=== PATIENT | female | born 1950 | race Caucasian/White ===

== ENCOUNTER → 2016-05-21 | Outpatient (CLI) | payer OTHER ==
[~2016-05-21] MED LIST: ASPI81TA28 PO; CHOL100027 PO; ESCI10TA17 PO; TOPI100T34 PO
--- NOTE | 2016-05-21 11:57 | DIAGNOSTIC IMAGING REPORT ---
THYROID ULTRASOUND HISTORY: Evaluate LEFT THYROID NODULE COMPARISON: Chest CTA 06/13/2013. FINDINGS: Right lobe: 5.1 x 1.2 x 1.3 cm. No nodules. Left lobe: 6.0 x 2.3 x 1.6 cm. There is a solid and cystic 3.6 x 2.9 x 2.3 cm nodule within the left lobe. This contains punctate calcifications. Isthmus: 2 mm in thickness. No nodules. IMPRESSION: A solid and cystic 3.6 cm left thyroid nodule. Ultrasound-guided fine-needle aspiration is recommended for further evaluation. Electronically signed by: David Ingram M.D. 05/21/2016 11:56 AM Dictated Date/Time: 05/21/2016 11:54 AM
== END | disposition home or self-care (01) ==
LOC: C.ULTR 10:50
PROVIDERS: ATTEND Family Medicine
DX: E04.1 Nontoxic single thyroid nodule (principal)

== ENCOUNTER → 2016-06-09 | Outpatient (CLI) | payer OTHER ==
--- NOTE | 2016-06-09 11:16 | DIAGNOSTIC IMAGING REPORT ---
Ultrasound-guided thyroid biopsy GUIDANCE NEEDLE PLACEMENT CLINICAL HISTORY: THYROID NODULE thyroid nodule TECHNIQUE: Ultrasound guided left thyroid biopsy COMPARISON STUDY: 05/21/2016 FINDINGS: Following description of the procedure and informed consent, a total of 3 passes to the complex nodule of the left thyroid were performed. Pathology initially indicated a potential indeterminate result. Patient declined additional passes IMPRESSION: Fine-needle aspiration dominant nodule left thyroid Electronically signed by: Cornelio Reinoso M.D. 06/09/2016 11:14 AM Dictated Date/Time: 06/09/2016 11:11 AM
== END | disposition home or self-care (01) ==
LOC: C.ULTR 09:38
PROVIDERS: ATTEND Family Medicine
DX: E04.1 Nontoxic single thyroid nodule (principal)

== ENCOUNTER 2021-01-22 11:39 | Inpatient (IN) ==
--- NOTE | 2021-01-22 14:47 | Emergency Department Note ---
Impression & Plan COVID-19, Bilateral pulmonary embolism ED Provider Note CHIEF COMPLAINT: Right pleuritic chest pain HISTORY OF PRESENT ILLNESS: Carole Dill is a 70 year old female with recent +COVID-19 diagnosis on 01/11/21 who presents to the Emergency Department for evaluation of pleuritic pains to her right lower chest wall and shortness of breath which she developed yesterday. Currently, she rates her discomfort as an 8/10 which worsens with attempts of deep breaths. She has not attempted to take any medications for her symptoms. Since the patient was diagnosed with COVID-19, she states that she has not had an appetite which has made it difficult for her to eat or drink anything. She denies abdominal pain, nausea, vomiting or diarrhea and has continued with +taste/smell, however she states that nothing tastes good so she doesn't want to eat. She subsequently lost a few pounds due to her lack of oral intake, though she states she has been forcing herself to drink breakfast shakes. The patient does note intermittent fevers/chills but she denies nasal congestion or sore throat. She also states that she did not have respiratory symptoms until she began with a mild cough yesterday along with the pains to her right lower chest wall and dyspnea. Due to her development of these symptoms, the patient presents to the ED for further evaluation today. Of note, the patient has history of stroke in her 20s and has been taking a daily bASA, denies use of additional anticoagulants/antiplatelets. REVIEW OF SYSTEMS: 10 systems were reviewed and were negative unless otherwise stated in HPI as above PHYSICAL EXAM: VITALS: Vitals are noted on the nurse's note and reviewed by myself. Vital sig ns stable. General: Resting in bed, no acute distress HEENT: Normocephalic, PERRL, EOMI, bilateral auditory canals with cerumen, mucous membranes moist, oropharynx clear without erythema or edema Neck: No cervical lymphadenopathy Resp: Moderate inspiratory effort on room air but with exacerbation of right lower chest wall pain, breath sounds clear to auscultation without wheezes, rhonchi or rales, no tenderness to palpation of the chest wall CV: Regular rate and rhythm, peripheral pulses palpated Abd: Soft, non-distended, non-tender Integumentary: Scattered pin point scabs consistent with previous urticarial rash over the back Neuro: Awake, alert, interacting and answering questions appropriately Differential diagnosis includes COVID-19, pneumonia, pulmonary effusion, pulmonary embolism, pulmonary infarct, cardiac event, among other etiologies were considered EMERGENCY DEPARTMENT COURSE: Physical exam and history were performed. Nursing notes, EMR, and medication list were personally reviewed. Continuous personnel monitor: Order was placed for continuous personnel monitor. Patient was placed on the personnel monitor. Patient was noted to be in normal sinus rhythm at an initial rate of 99 bpm. Patient appears to have developed worsening respiratory symptoms including a cough with shortness of breath and associated pains to her right lower chest wall since yesterday after she was recently diagnosed with COVID-19 on 01/11/21. IV access was established, and labs were obtained and reviewed by myself as below. Of note, the patient did not have a leukocytosis with a white blood cell count of 9.75, no concern for anemia with hemoglobin 13.2, CMP within relative normal limits without concerning findings. Troponin not elevated at <0.015. Most concerning, however, with an elevated D-dimer of 29,610 indicative of possible blood clot. Chest x-ray was obtained and reviewed by radiologist and myself as below. This did show a few small hazy bilateral airspace opacities within the mid to lower lung zones likely representing a viral pneumonia, however with an elevated D-dimer there is concern for PE. I did discuss this finding with the patient. A CTA of the chest was then obtained and reviewed by radiologist and myself as below. This did show more concerning findings with bilateral pulmonary emboli, dependent subpleural consolidation right greater than left concerning for possible pneumonia versus superimposed pulmonary infarct. The patient was reevaluated and appeared to be in more discomfort after she was moved from CAT scan and had gone to the bathroom. She was offered pain medication and was given a dose of oxycodone 5 mg. I discussed the results of her lab work and imaging with her as above. This was also discussed with my attending, Dr. Whitley. Due to her newly diagnosed pulmonary emboli in the setting of recent Covid diagnosis, we feel that she will benefit from continued management in the hospital. A heparin gtt with bolus was ordered and the [facility] hospitalist group was contacted regarding these concerns. They agreed to evaluate the patient for further management. The patient verbalized understanding and agreement with the treatment plan as above. The chart was completed utilizing Dragon Speech Voice Recognition Software. Grammatical errors, random word insertions, pronoun errors, and incomplete sentences are an occasional consequence of this system due to software limitations, ambient noise, and hardware issues. Any formal questions or concerns about the content, text, or information contained within the body of this dictation should be directly addressed to the provider for clarification. Critical Care I have personally spent 35 minutes of critical care time in the direct manageme nt of this patient. This includes bedside care, interpretation of diagnostic studies, and testing, discussion with consultants, patient, and other required patient management activities. These 35 minutes is in excess of all separately billable procedures. Attending Attestation: I Greg Whitley MD independently saw and evaluated this patient and agree with history and physical is otherwise documented by the physician ophthalmic surgical assistant. See their note for full details. Patient resting in bed not significant hypoxic but has some pleuritic right-sided chest discomfort with deep breathing. Patient has been made aware of the findings of blood clots. Discussed with her the need for anticoagulation and given her age and comorbid Covid with the extensive nature of the PEs feel further observation here would be prudent. The hospitalist team will be contacted. Past Med/Surg History Medical History Anxiety Chronic fatigue Cognitive dysfunction Complex partial seizure Confusion COVID-19 Depression with anxiety Migraine Nausea Stroke Thyroid nodule Surgical History H/O tubal ligation Family History Father Stomach cancer Mother Heart disease Denies family history of Ovarian cancer Prostate cancer Myocardial infarction Breast cancer Colorectal cancer Social History Smoking Status: Never smoker Second Hand Exposure: No; Hx Alcohol Use: No Hx Substance Use: No Preferred Language: Tajik Communication Ability: Effective Visual Impairment: Limited Hearing Ability: Normal Master Glazier Required: No Beliefs That Will Affect Care: None marital status: Current Living Situation: Spouse and Family Current Living Situation Comment: house current occupational status: retired How many Children do You have: 2 Other Information That Helps Us Care for You: No Feels Safe at Home: Yes Safety Concerns: Feels Safe At This Time Childhood Exposure to Second-Hand Smoke: No caffeine: Yes (coffee daily ) during the past year weight has: remained stable Dental Care, Regularly: Yes Physical Activity Frequency: Daily Physical Activity Frequency Comment: walks- housework Seatbelt Use: always Sunscreen Use: Yes Assistive Devices: None Allergies Allergies Allergy/AdvReac Type Severity Reaction Status Date / Time Penicillins Allergy Unknown AMOXICILLIN Verified 01/22/21 15:00 amoxicillin AdvReac Hives Unverified 01/22/21 15:00 Home Meds Home Medications Medication Instructions Recorded Confirmed alendronate 70 mg tablet (Fosamax) 70 mg PO .COMPLEX tab 01/05/19 01/22/21 cholecalciferol (vitamin D3) 500 mg PO DAILY 01/05/19 01/22/21 omega-3 fatty acids-fish oil 360 1 cap PO DAILY 01/05/19 01/22/21 mg-1,200 mg capsule (Fish Oil) [id number] 333 mg-133 333 tab PO DAILY tab 01/09/20 01/22/21 mg-5 mg tablet aspirin 81 mg tablet 81 mg PO DAILY tab 01/07/21 01/11/21 escitalopram oxalate 10 mg tablet 10 mg PO DAILY #30 tab 01/07/21 01/22/21 Previous Rx's Medication Instructions Recorded memantine 10 mg tablet 10 mg PO BID #60 tab 01/07/21 topiramate 100 mg tablet 100 mg PO .COMPLEX #270 tab 01/07/21 ondansetron HCl 4 mg tablet 4 mg PO Q6H PRN #12 tab 01/12/21 (Zofran) Results & Data (ED) Vital Signs Vital Signs - 24 hr 01/22/21 11:52 01/22/21 15:03 01/22/21 17:18 Temperature 37.3 C Temperature Source Temporal Artery Scan Pulse Rate 99 H Pulse Rate [Apical] 90 84 Pulse Rhythm [Apical] Regular Respiratory Rate 18 20 24 Respiratory Effort / Characteristics Non-Labored Spontaneous Non-Labored Respiratory Depth Normal Normal Blood Pressure 130/89 Blood Pressure [Right Arm] 117/88 130/90 Blood Pressure Mean 102 Blood Pressure Mean [Right Arm] 97 103 Blood Pressure Position Sitting Pulse Oximetry 96 94 97 Oxygen Delivery Method Room Air Room Air Room Air Sepsis Recent Fever Within 48 Hours No Sepsis New/Unexplained Change in Mental Status No Sepsis Action Taken by Nursing No Action Required Laboratory Data Result diagrams: 01/23/21 07:29 01/23/21 07:29 Lab Results 01/22/21 01/22/21 01/22/21 Range/Units 14:50 14:50 14:50 WBC 9.75 (4.8-10.8) K/uL RBC 4.28 (4.2-5.4) M/uL Hgb 13.2 (12.0-16.0) g/dL Hct 38.5 (37-47) % MCV 90.0 (80-100) fL MCH 30.8 (25-34) pg MCHC 34.3 (32-36) g/dL RDW Std Deviation 41.3 (36.4-46.3) fL RDW Coeff of Za 12.7 (11.5-14.5) % Plt Count 205 (130-400) K/uL MPV 10.1 (7.4-10.4) fL Immature Gran % (Auto) 0.3 % Neut % (Auto) 74.9 % Lymph % (Auto) 16.5 % [place] % (Auto) 7.9 % Eos % (Auto) 0.3 % Baso % (Auto) 0.1 % Neut # (Auto) 7.30 H (1.4-6.5) K/uL Lymph # (Auto) 1.61 (1.2-3.4) K/uL [place] # (Auto) 0.77 H (0.11-0.59) K/uL Eos # (Auto) 0.03 (0-0.5) K/uL Baso # (Auto) 0.01 (0-0.2) K/uL Immature Gran # (Auto) 0.03 H (0.00-0.02) K/uL PT 10.6 (9.0-12.0) Seconds INR 1.0 (0.9-1.1) APTT 25.5 (21.0-31.0) Seconds PTT Ratio 1.0 D-Dimer Cancelled 64271 H* Sodium (136-145) mmol/L Potassium (3.5-5.1) mmol/L Chloride (98-107) mmol/L Carbon Dioxide (21-32) mmol/L Anion Gap (3-11) BUN (7-18) mg/dl Creatinine (0.6-1.2) mg/dl Est Cr Clr Drug Dosing ml/min Est GFR ( Amer) ml/min Est GFR (Non-Af Amer) ml/min BUN/Creatinine Ratio (10-20) Glucose (70-99) mg/dl Calcium (8.5-10.1) mg/dl Total Bilirubin (0.2-1) mg/dl AST (15-37) U/L ALT (12-78) U/L Alkaline Phosphatase (45-117) U/L Troponin I (0-0.045) ng/ml Total Protein (6.4-8.2) gm/dl Albumin (3.4-5.0) gm/dl Globulin (2.5-4.0) gm/dl Albumin/Globulin Ratio (0.9-2) Urine Color Urine Appearance (Clear) Urine pH (4.5-7.5) Ur Specific [place]gan (1.000-1.030) Urine Protein (Negative) Urine Glucose (UA) (Negative) Urine Ketones (Negative) Urine Blood (Negative) Urine Nitrite (Negative) Urine Bilirubin (Negative) Urine Urobilinogen (Negative) Ur Leukocyte Esterase (Negative) 01/22/21 01/22/21 Range/Units 14:50 17:45 WBC (4.8-10.8) K/uL RBC (4.2-5.4) M/uL Hgb (12.0-16.0) g/dL Hct (37-47) % MCV (80-100) fL MCH (25-34) pg MCHC (32-36) g/dL RDW Std Deviation (36.4-46.3) fL RDW Coeff of Za (11.5-14.5) % Plt Count (130-400) K/uL MPV (7.4-10.4) fL Immature Gran % (Auto) % Neut % (Auto) % Lymph % (Auto) % [place] % (Auto) % Eos % (Auto) % Baso % (Auto) % Neut # (Auto) (1.4-6.5) K/uL Lymph # (Auto) (1.2-3.4) K/uL [place] # (Auto) (0.11-0.59) K/uL Eos # (Auto) (0-0.5) K/uL Baso # (Auto) (0-0.2) K/uL Immature Gran # (Auto) (0.00-0.02) K/uL PT (9.0-12.0) Seconds INR (0.9-1.1) APTT (21.0-31.0) Seconds PTT Ratio D-Dimer Sodium 138 (136-145) mmol/L Potassium 3.5 (3.5-5.1) mmol/L Chloride 109 H (98-107) mmol/L Carbon Dioxide 22 (21-32) mmol/L Anion Gap 7.0 (3-11) BUN 13 (7-18) mg/dl Creatinine 0.85 (0.6-1.2) mg/dl Est Cr Clr Drug Dosing 55.1 ml/min Est GFR ( Amer) 79.9 ml/min Est GFR (Non-Af Amer) 68.9 ml/min BUN/Creatinine Ratio 15.2 (10-20) Glucose 100 H (70-99) mg/dl Calcium 9.5 (8.5-10.1) mg/dl Total Bilirubin 0.9 (0.2-1) mg/dl AST 12 L (15-37) U/L ALT 16 (12-78) U/L Alkaline Phosphatase 77 (45-117) U/L Troponin I < 0.015 (0-0.045) ng/ml Total Protein 8.0 (6.4-8.2) gm/dl Albumin 3.5 (3.4-5.0) gm/dl Globulin 4.5 H (2.5-4.0) gm/dl Albumin/Globulin Ratio 0.8 L (0.9-2) Urine Color Yellow Urine Appearance Clear (Clear) Urine pH 7.0 (4.5-7.5) Ur Specific [place]gan > 1.045 H (1.000-1.030) Urine Protein Negative (Negative) Urine Glucose (UA) Negative (Negative) Urine Ketones Negative (Negative) Urine Blood Negative (Negative) Urine Nitrite Negative (Negative) Urine Bilirubin Negative (Negative) Urine Urobilinogen Negative (Negative) Ur Leukocyte Esterase Negative (Negative) Administered Medications Acetaminophen (Acetaminophen 325 Mg Tab) 650 mg PO Q4H PRN PRN Reason: Pain or Fever Stop: 02/21/21 21:25 Last Admin: 01/23/21 13:11 Dose: 650 mg Documented by: [id number] Admin: 01/23/21 05:50 Dose: 650 mg Documented by: [id number] Escitalopram Oxalate (Escitalopram Oxalate 10 Mg Tab) 10 mg PO DAILY [facility] Stop: 02/22/21 08:59 Last Admin: 01/23/21 07:53 Dose: 10 mg Documented by: [id number] Heparin Sodium/Dextrose (Heparin Sodium/Dextrose) 25,000 units in 500 mls @ 18 mls/hr IV .Q24H [facility]; Protocol Stop: 02/21/21 17:44 Last Admin: 01/23/21 18:36 Dose: 900 units/hr, 18 mls/hr Documented by: [id number] Cosigned by: [id number] Titration: 01/23/21 18:36 Dose: 900 units/hr, 18 mls/hr Documented by: [id number] Cosigned by: [id number] Titration: 01/23/21 01:46 Dose: 900 units/hr, 18 mls/hr Documented by: [id number] Cosigned by: [id number] Titration: 01/23/21 00:42 Dose: 0 units/hr, 0 mls/hr Documented by: [id number] Cosigned by: [id number] Admin: 01/22/21 17:33 Dose: 1,050 units/hr, 21 mls/hr Documented by: [id number] Cosigned by: [id number] Ketorolac Tromethamine (Ketorolac Tromethamine 15 Mg/Ml Vial) 15 mg IV Q6H PRN PRN Reason: Pain Stop: 01/28/21 16:49 Last Admin: 01/23/21 17:29 Dose: 15 mg Documented by: [id number] Lidocaine (Lidocaine 5% 1 Patch) 1 patch TD QAM [facility] Stop: 02/21/21 18:14 Last Admin: 01/23/21 07:54 Dose: Not Given Documented by: [id number] Admin: 01/22/21 19:06 Dose: 1 patch Documented by: [id number] Memantine (Memantine Hcl 10 Mg Tab) 10 mg PO DAILY [facility] Stop: 02/05/21 09:01 Last Admin: 01/23/21 07:53 Dose: 10 mg Documented by: [id number] Miscellaneous (Remove Lidoderm Patch) 1 ea N/A DAILY@2100 [facility] Stop: 02/21/21 21:25 Last Admin: 01/22/21 23:44 Dose: 1 ea Documented by: [id number] Topiramate (Topiramate 100 Mg Tab) 200 mg PO HS [facility] Stop: 02/21/21 21:25 Last Admin: 01/22/21 23:44 Dose: 200 mg Documented by: [id number] Topiramate (Topiramate 100 Mg Tab) 100 mg PO QAM [facility] Stop: 02/22/21 08:59 Last Admin: 01/23/21 07:54 Dose: 100 mg Documented by: [id number] Discontinued Medications Heparin Sodium (Porcine) (Heparin Sod (Porcine) 1000 Unit/Ml) 1 units IV NOW ONE Stop: 01/22/21 17:36 Last Admin: 01/22/21 17:34 Dose: 5,000 units Documented by: [id number] Cosigned by: [id number] Heparin Sodium/Dextrose (Heparin Iv Adult Wt-Based Standard With Bolus Protocol) 1 ea IV NOW STA; Protocol Stop: 01/22/21 17:21 Last Admin: 01/23/21 07:14 Dose: Not Given Documented by: [id number] Heparin Sodium/Dextrose (Heparin Iv Adult Wt-Based Standard With Bolus Protocol) 1 ea IV NOW STA; Protocol Stop: 01/22/21 17:22 Last Admin: 01/23/21 07:20 Dose: Not Given Documented by: [id number] Lactated Ringer's (Lr) 1,000 mls @ 80 mls/hr IV .[id number] [facility] Stop: 02/21/21 18:29 Last Admin: 01/23/21 07:54 Dose: 80 mls/hr Documented by: [id number] Infusion: 01/23/21 07:36 Dose: 80 mls/hr Documented by: [id number] Admin: 01/22/21 19:06 Dose: 80 mls/hr Documented by: [id number] Ioversol (Optiray 320 125ml) 110 ml IV ONCE ONE Stop: 01/22/21 17:03 Last Admin: 01/22/21 17:02 Dose: 110 ml Documented by: [id number] Ketorolac Tromethamine (Ketorolac Tromethamine 15 Mg/Ml Vial) 15 mg IV NOW ONE Stop: 01/22/21 19:02 Last Admin: 01/22/21 23:43 Dose: Not Given Documented by: [id number] Ketorolac Tromethamine (Ketorolac Tromethamine 15 Mg/Ml Vial) 15 mg IV NOW ONE Stop: 01/23/21 01:29 Last Admin: 01/23/21 01:53 Dose: Not Given Documented by: [id number] Oxycodone HCl (Oxycodone Hcl Ir 5 Mg Tab (Immediate Release)) 5 mg PO NOW STA Stop: 01/22/21 17:36 Last Admin: 01/22/21 17:41 Dose: 5 mg Documented by: [id number] Imaging Data Radiologist's Impression: Chest X-Ray 01/22/21 14:42 XR chest 1V portable HISTORY: Covid positive. Shortness of breath. COMPARISON: Chest 01/12/2021. FINDINGS: No pneumothorax. No pleural effusions. There are few small hazy bilateral airspace opacities within the mid to lower lung zones. This most pronounced at the left lung base. This likely represents a mild viral pneumonia. The upper lung zones are clear. The heart is mildly enlarged. No evidence for pulmonary edema. IMPRESSION: A few small hazy bilateral airspace opacities within the mid to lower lung zones likely representing a viral pneumonia. ACT 112: Negative or not required by law. Electronically signed by: David Ingram M.D. 01/22/2021 3:08 PM Chest CTA 01/22/21 15:37 CT ANGIOGRAM OF THE CHEST CLINICAL HISTORY: Dyspnea. Covid. Elevated d-dimer. COMPARISON STUDY: Chest x-ray dated 01/22/2021. Chest CT dated 06/13/2013. TECHNIQUE: Following the IV administration of 110 cc of Optiray 320, CT angiogram of the chest was performed from the upper abdomen to the thoracic inlet utilizing the pulmonary embolus protocol. Images are reviewed in the axial, sagittal, and coronal planes. 3-D MIPS images are created and assessed. IV contrast was administered without complication. A dose lowering technique was utilized adhering to the principles of ALARA. CT DOSE: 305.75 mGycm FINDINGS: Thyroid: A 2.4 cm peripherally calcified nodule in the left lobe has not significantly changed dating back to 2013. This was better assessed on a 08/16/2018 thyroid ultrasound and no specific follow-up is recommended. Thoracic aorta: The thoracic aorta is normal in caliber and demonstrates standard 3-vessel arch anatomy. No dissection is seen. Pulmonary vasculature: There is pulmonary embolus within the distal right main pulmonary artery. This extends into the right middle and lower lobe pulmonary arteries. Segmental and subsegmental pulmonary emboli are seen within the right lower lobe branches. Large segmental and subsegmental pulmonary emboli are also seen within branches of the left lower lobe pulmonary artery. Heart: The heart is normal in size and without pericardial effusion. Lungs and pleural spaces: Subpleural consolidation is present at both lung bases, right greater than left. The upper lobes appear clear. A fat-containing Bochdalek hernia is noted at the left lung base. No pleural effusion is identified. The trachea and central airways are clear. Mediastinum: There is no mediastinal lymphadenopathy. Tati: Clear. Axillae: There is no axillary lymphadenopathy. Upper abdomen: Partially visualized upper abdominal viscera is within normal limits. Skeletal structures: The skeletal structures are osteopenic. Mild degenerative changes noted in the thoracic spine. No lytic or blastic bony lesions are seen. IMPRESSION: 1. Bilateral pulmonary embolus as above. 2. Dependent subpleural consolidation is seen at both lung bases, right greater than left. This could represent pneumonia and/or superimposed pulmonary infarct. Clinical correlation will be essential. 3. Additional findings as above. ACT 112: Negative or not required by law. Electronically signed by: Artemio Stratton M.D. 01/22/2021 5:12 PM Discharge Plan Visit Data Chief Complaint: Flank Pain Stated Complaint: R SIDE PAIN,HURTS WHEN BREATHING ED Provider: Greg Whitley ED Midlevel Provider: Vero Castro Discharge Problem: COVID-19, Bilateral pulmonary embolism Patient Disposition: Admitted As Inpatient Discharge Instructions Interventions: ED Discharge Assessment Last Done: 01/22/21 21:18
[2021-01-22 15:04] LABS: Basophils # (auto) 0.01 K/uL (0-0.2); Basophils % (auto) 0.1 %; Eosinophils # (auto) 0.03 K/uL (0-0.5); Eosinophils % (auto) 0.3 %; Hematocrit (blood only) 38.5 % (37-47); Hemoglobin 13.2 g/dL (12.0-16.0); Immature Granulocytes # (auto) 0.03 K/uL (0.00-0.02); Immature Granulocytes % (auto) 0.3 %; Lymphocytes # (auto) 1.61 K/uL (1.2-3.4); Lymphocytes % (auto) 16.5 %; Mean Corpuscular Hemoglobin 30.8 pg (25-34); Mean Corpuscular Hgb Conc 34.3 g/dL (32-36); Mean Platelet Volume 10.1 fL (7.4-10.4); Monocytes # (auto) 0.77 K/uL (0.11-0.59); Monocytes % (auto) 7.9 %; Neutrophils % (auto) 74.9 %; Platelet Count 205 K/uL (130-400); RDW Coefficient of Variation 12.7 % (11.5-14.5); RDW Standard Deviation 41.3 fL (36.4-46.3); Red Blood Count 4.28 M/uL (4.2-5.4); White Blood Count 9.75 K/uL (4.8-10.8)
--- NOTE | 2021-01-22 15:09 | XRay Report ---
XR chest 1V portable HISTORY: Covid positive. Shortness of breath. COMPARISON: Chest 01/12/2021. FINDINGS: No pneumothorax. No pleural effusions. There are few small hazy bilateral airspace opacitie s within the mid to lower lung zones. This most pronounced at the left lung base. This likely represe nts a mild viral pneumonia. The upper lung zones are clear. The heart is mildly enlarged. No evidence for pulmonary edema. IMPRESSION: A few small hazy bilateral airspace opacities within the mid to lower lung zones likely representing a viral pneumonia. ACT 112: Negative or not required by law. Electronically signed by: David Ingram M.D. 01/22/2021 3:08 PM
[2021-01-22 15:24] LABS: Alanine Aminotransferase 16 U/L (12-78); Albumin Level 3.5 gm/dl (3.4-5.0); Aspartate Aminotransferase 12 U/L (15-37); BUN Creatinine Ratio 15.2 (10-20); Blood Urea Nitrogen 13 mg/dl (7-18); Calcium 9.5 mg/dl (8.5-10.1); Carbon Dioxide 22 mmol/L (21-32); Chloride 109 mmol/L (98-107); Creatinine Clr Calc Pharmacy 55.1 ml/min; Est GFR (African American) 79.9 ml/min; Est GFR (Non-African American) 68.9 ml/min; Glucose 100 mg/dl (70-99); Potassium 3.5 mmol/L (3.5-5.1); Sodium 138 mmol/L (136-145)
[2021-01-22 15:29] LABS: Albumin Globulin Ratio 0.8 (0.9-2); Alkaline Phosphatase 77 U/L (45-117); Bilirubin,Total 0.9 mg/dl (0.2-1); Globulin 4.5 gm/dl (2.5-4.0); Troponin I < 0.015 ng/ml (0-0.045)
[2021-01-22 15:31] LABS: Partial Thromboplastin Time 25.5 Seconds (21.0-31.0); Prothrombin Time 10.6 Seconds (9.0-12.0)
[2021-01-22 15:35] LABS: D Dimer 29610 ug/L FEU (0-500)
[2021-01-22] MEDS ORDERED: OPTIRAY 320 125ml IV ONE (17:02)
--- NOTE | 2021-01-22 17:13 | CT Scan Report ---
CT ANGIOGRAM OF THE CHEST CLINICAL HISTORY: Dyspnea. Covid. Elevated d-dimer. COMPARISON STUDY: Chest x-ray dated 01/22/2021. Chest CT dated 06/13/2013. TECHNIQUE: Following the IV administration of 110 cc of Optiray 320, CT angiogram of the chest was pe rformed from the upper abdomen to the thoracic inlet utilizing the pulmonary embolus protocol. Images are reviewed in the axial, sagittal, and coronal planes. 3-D MIPS images are created and assessed. I V contrast was administered without complication. A dose lowering technique was utilized adhering to the principles of ALARA. CT DOSE: 305.75 mGycm FINDINGS: Thyroid: A 2.4 cm peripherally calcified nodule in the left lobe has not significantly changed dating back to 2013. This was better assessed on a 08/16/2018 thyroid ultrasound and no specific follow-up i s recommended. Thoracic aorta: The thoracic aorta is normal in caliber and demonstrates standard 3-vessel arch anato my. No dissection is seen. Pulmonary vasculature: There is pulmonary embolus within the distal right main pulmonary artery. This extends into the right middle and lower lobe pulmonary arteries. Segmental and subsegmental pulmonar y emboli are seen within the right lower lobe branches. Large segmental and subsegmental pulmonary em boli are also seen within branches of the left lower lobe pulmonary artery. Heart: The heart is normal in size and without pericardial effusion. Lungs and pleural spaces: Subpleural consolidation is present at both lung bases, right greater than left. The upper lobes appear clear. A fat-containing Bochdalek hernia is noted at the left lung base. No pleural effusion is identified. The trachea and central airways are clear. Mediastinum: There is no mediastinal lymphadenopathy. Tati: Clear. Axillae: There is no axillary lymphadenopathy. Upper abdomen: Partially visualized upper abdominal viscera is within normal limits. Skeletal structures: The skeletal structures are osteopenic. Mild degenerative changes noted in the t horacic spine. No lytic or blastic bony lesions are seen. IMPRESSION: 1. Bilateral pulmonary embolus as above. 2. Dependent subpleural consolidation is seen at both lung bases, right greater than left. This could represent pneumonia and/or superimposed pulmonary infarct. Clinical correlation will be essential. 3. Additional findings as above. ACT 112: Negative or not required by law. Electronically signed by: Artemio Stratton M.D. 01/22/2021 5:12 PM
[2021-01-22] MEDS ORDERED: Heparin IV Adult Wt-Based Standard WITH Bolus Protocol IV STA ×2 (17:20→17:21)
[2021-01-22] MEDS: HEPARIN SODIUM/DEXTROSE 25,000 UNITS/500 ML BAG IV SCH (17:33)
[2021-01-22] MEDS ORDERED: HEPARIN SOD (PORCINE) 1000 UNIT/ML IV ONE ×2 (17:35→17:36)
[2021-01-22] MEDS ORDERED: oxyCODONE HCL IR 5 MG TAB (IMMEDIATE RELEASE) PO STA (17:35)
[2021-01-22] MEDS ORDERED: HEPARIN SODIUM/DEXTROSE 25,000 UNITS/500 ML BAG IV SCH (17:45)
[2021-01-22 17:54] LABS: Appearance Urine Clear (Clear); Bilirubin Urine Negative (Negative); Blood Urine Negative (Negative); Color Urine Yellow; Glucose Urine UA Negative (Negative); Ketones Urine Negative (Negative); Leukocyte Esterase Urine Negative (Negative); Nitrite Urine Negative (Negative); Protein Urine Negative (Negative); Specific Gravity Urine > 1.045 (1.000-1.030); Urobilinogen Urine Negative (Negative)
--- NOTE | 2021-01-22 18:52 | History & Physical Report ---
Date of Service January 22, 2021 Assessment & Plan (1) Pulmonary embolism: Plan: Acute bilateral pulmonary embolism with right sided pulmonary infarction - in the setting of COVID 19 - Patient hemodynamically stable, no evidence of shock, Troponin I negative, BNP - PESI II, modified PESI 0, - Shock index 0.6 - Patient started on Heparin drip with bolus- continue through PM with transition to oral agent - Risk factors- COVID, decrease mobility - No RV dilation on CT scan - Normal WBC and NLR and platelet count For her Pulmonary infarct pain- Lidoderm patches q12, Toradol x1- if effective can re-dose for later, and Tylenol. ICS and if severe consider oral narcotic. (2) COVID-19: Plan: COVID 19 without hypoxia or respiratory failure - Patient is Day 11 from test and day 15 from illness onset - Continue supportive care - CT scan of the lungs except for pulmonary infarct without severe disease or scarring noted - Inflammatory labs sent (3) Hypovolemia: Plan: Spec grav 1.045 LR overnight 80ml per hour to meet daily fluid intake can wean off if she feels better (4) Cognitive dysfunction: Plan: Follows with neurology- with decrease in her memory - Continue Memantine 10mg PO BID (5) Chronic fatigue: Plan: Had some improvment with memantine as above (6) Migraine: Plan: On Topiramate- controlled (7) Complex partial seizure: Plan: On Topiramate- Initial seizure was in June 2018- patient has not had any since that she can recall (8) Depression with anxiety: Plan: Continue with escitalopram 10mg PO daily (9) Weight loss: Plan: In the setting of loss of appetite associated with COVID 19 - patient still has her sense of taste and smell - reports 10-12 lb weight loss- patient appears frail - regular diet and supplement with nutritional shakes BID- adjust as warranted History of Present Illness Chief Complaint: chest pain Primary Care Provider: Michael Mars MD 70 YOF with past medical history of: COVID 19 (01/11/21 test +, symptoms 01/07/21), cognitive dysfunction, Complex partial seizure, migraine, anxiety, osteopenia. Patient comes to the emergency room today for acute onset of right lower chest pain on the anterior lateral intercostals 5-6. This started last night around 2330 and was sharp and stabbing in nature that continued to get progressively worse today. This was also associated with dyspnea as well that got progressively worse today. The patient has not been admitted for her COVID and has been managing at home, with just a decrease in appetite for the past week and has noticed 10-12 lb weight loss. She states that no food tastes good to her, but she has been trying to stay hydrated, but even that has been a struggle today. In the EMD the patient had routine labs drawn and ECG. Due to her pain location a [place] [address], which prompted CTA of the chest. CTA of the chest revealed bilateral PEs- right distal main PA extending to the right middle and lower lobe with pulmonary infraction as well as segmental and subsegmental PE on the left. The patient was not hypoxic had no tachycardia or evidence of hemodynamic instability. Her troponin I was negative, no pericardial effusion and no note of heart strain on ECG or physical exam. Patient was started on Heparin drip with bolus in the EMD and the hospitalist was called for admission. Patient is fatigued appearing and has been sleeping in her recliner at home. She has not noticed any leg pain or discomfort and no leg pain or swollen calves on examination. Patient will be admitted for supportive care of her nutrition and hydration status and transition to DOAC for her PE in the setting of COVID. For her pain that is likely resulting from pulmonary infarct will transition to Lidoderm patch and Toradol dose now and Tylenol. This should improve over the next day. Patient PESI score is II with Modified PESI of 0. Patient is unvaccinated. COVID test positive on . Allergies Allergy/AdvReac Type Severity Reaction Status Date / Time Penicillins Allergy Unknown AMOXICILLIN Verified 01/22/21 15:00 amoxicillin AdvReac Hives Unverified 01/22/21 15:00 Home Medications Medication Instructions Recorded Confirmed Type alendronate 70 mg tablet (Fosamax) 70 mg PO .COMPLEX tab 01/05/19 01/22/21 History cholecalciferol (vitamin D3) 500 mg PO DAILY 01/05/19 01/22/21 History omega-3 fatty acids-fish oil 360 1 cap PO DAILY 01/05/19 01/22/21 History mg-1,200 mg capsule (Fish Oil) [id number]-[id number]-[id number] 333 mg-133 333 tab PO DAILY tab 01/09/20 01/22/21 History mg-5 mg tablet aspirin 81 mg tablet 81 mg PO DAILY tab 01/07/21 01/11/21 History escitalopram oxalate 10 mg tablet 10 mg PO DAILY #30 tab 01/07/21 01/22/21 History memantine 10 mg tablet 10 mg PO BID #60 tab 01/07/21 01/22/21 Rx topiramate 100 mg tablet 100 mg PO .COMPLEX #270 tab 01/07/21 01/22/21 Rx ondansetron HCl 4 mg tablet 4 mg PO Q6H PRN #12 tab 01/12/21 01/22/21 Rx (Zofran) Past Med/Surg History Medical History Anxiety Chronic fatigue Cognitive dysfunction Complex partial seizure Confusion COVID-19 Depression with anxiety Migraine Nausea Stroke Thyroid nodule Surgical History H/O tubal ligation Family History Father Stomach cancer Mother Heart disease Denies family history of Ovarian cancer Prostate cancer Myocardial infarction Breast cancer Colorectal cancer Social History Smoking Status: Never smoker Second Hand Exposure: No; Hx Alcohol Use: No Hx Substance Use: No Preferred Language: Korean Visual Impairment: Limited Hearing Ability: Normal 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 Beliefs That Will Affect Care: None marital status: Current Living Situation: Spouse and Family Current Living Situation Comment: house current occupational status: retired How many Children do You have: 2 Other Information That Helps Us Care for You: No Feels Safe at Home: Yes Safety Concerns: Feels Safe At This Time Childhood Exposure to Second-Hand Smoke: No caffeine: Yes (coffee daily ) during the past year weight has: remained stable Dental Care, Regularly: Yes Physical Activity Frequency: Daily Physical Activity Frequency Comment: walks- housework Seatbelt Use: always Sunscreen Use: Yes Assistive Devices: Glasses Review of Systems Review of Systems: REVIEW OF SYSTEMS: Constitutional: No fever, sweats or chills Eyes: No diplopia, no worsening or blurred vision ENT: normal hearing, no trouble swallowing Respiratory: (+) cough, pleuritic chest pain, NO dyspnea at rest or on exertion, No sputum Cardiovascular: No chest pain, tightness or palpitations Abdomen: (+) loss of appetite, No pain, nausea, vomiting, diarrhea or constipation Musculoskeletal: No joint pain, calf pain, swelling Neurologic: No focal weakness, numbness/tingling, or balance problems Psychiatric: (+) depression Skin: No rash or itch Physical Exam Physical Exam: PHYSICAL EXAM: General: awake, alert, no apparent distress Head: Normocephalic, atraumatic ENT: PERRL, EOMI, no pharyngeal exudate, mucous membranes moist Neuro: AAO x 3, speech clear and appropriate, strength intact bilaterally 5/5, sensation intact and equal all extremities and dermatomes, no pronator drift Chest: equal rise and fall of the chest, no accessory muscle use, no heaves or thrills, Clear to auscultation, on room air, Cardiac: Regular rate and rhythm, telemetry reviewed, skin warm dry, cap refill <3 seconds, peripheral pulses +2 no JVD, no murmur, no edema GI: NABS x 4 quadrants, soft, nontender to palpation, no rebound, guarding or tenderness : Spontaneously voiding, no pain, no CVA tenderness, Extremities: Normal inspection, no peripheral edema or erythema, calfs nontender to palpation Psych: Normal mood and affect Skin: no rash or erythema Results & Data Results & Data ([facility]) Vital Signs (Past 12 Hours) Vital Signs Temp Pulse Pulse Resp BP BP Pulse Ox 01/22/21 17:18 84 24 130/90 97 01/22/21 15:03 90 20 117/88 94 01/22/21 11:52 37.3 C 99 H 18 130/89 96 Laboratory Results Abnormal lab results 01/22/21 01/22/21 01/22/21 Range/Units 14:50 14:50 14:50 Neut # (Auto) 7.30 H (1.4-6.5) K/uL [place] # (Auto) 0.77 H (0.11-0.59) K/uL Immature Gran # (Auto) 0.03 H (0.00-0.02) K/uL D-Dimer 73015 H* (0-500) ug/L FEU Chloride 109 H (98-107) mmol/L Glucose 100 H (70-99) mg/dl AST 12 L (15-37) U/L Globulin 4.5 H (2.5-4.0) gm/dl Albumin/Globulin Ratio 0.8 L (0.9-2) Ur Specific [place] (1.000-1.030) 01/22/21 Range/Units 17:45 Neut # (Auto) (1.4-6.5) K/uL [place] # (Auto) (0.11-0.59) K/uL Immature Gran # (Auto) (0.00-0.02) K/uL D-Dimer (0-500) ug/L FEU Chloride (98-107) mmol/L Glucose (70-99) mg/dl AST (15-37) U/L Globulin (2.5-4.0) gm/dl Albumin/Globulin Ratio (0.9-2) Ur Specific [place] > 1.045 H (1.000-1.030) Diagnostic Findings Chest X-Ray 01/22/21 14:42 XR chest 1V portable HISTORY: Covid positive. Shortness of breath. COMPARISON: Chest 01/12/2021. FINDINGS: No pneumothorax. No pleural effusions. There are few small hazy bilateral airspace opacities within the mid to lower lung zones. This most pronounced at the left lung base. This likely represents a mild viral pneumonia. The upper lung zones are clear. The heart is mildly enlarged. No evidence for pulmonary edema. IMPRESSION: A few small hazy bilateral airspace opacities within the mid to lower lung zones likely representing a viral pneumonia. ACT 112: Negative or not required by law. Electronically signed by: David Ingram M.D. 01/22/2021 3:08 PM Chest CTA 01/22/21 15:37 CT ANGIOGRAM OF THE CHEST CLINICAL HISTORY: Dyspnea. Covid. Elevated d-dimer. COMPARISON STUDY: Chest x-ray dated 01/22/2021. Chest CT dated 06/13/2013. TECHNIQUE: Following the IV administration of 110 cc of Optiray 320, CT angiogram of the chest was performed from the upper abdomen to the thoracic inlet utilizing the pulmonary embolus protocol. Images are reviewed in the axial, sagittal, and coronal planes. 3-D MIPS images are created and assessed. IV contrast was administered without complication. A dose lowering technique was utilized adhering to the principles of ALARA. CT DOSE: 305.75 mGycm FINDINGS: Thyroid: A 2.4 cm peripherally calcified nodule in the left lobe has not si gnificantly changed dating back to 2013. This was better assessed on a 08/16/2018 thyroid ultrasound and no specific follow-up is recommended. Thoracic aorta: The thoracic aorta is normal in caliber and demonstrates standard 3-vessel arch anatomy. No dissection is seen. Pulmonary vasculature: There is pulmonary embolus within the distal right main pulmonary artery. This extends into the right middle and lower lobe pulmonary arteries. Segmental and subsegmental pulmonary emboli are seen within the right lower lobe branches. Large segmental and subsegmental pulmonary emboli are also seen within branches of the left lower lobe pulmonary artery. Heart: The heart is normal in size and without pericardial effusion. Lungs and pleural spaces: Subpleural consolidation is present at both lung bases, right greater than left. The upper lobes appear clear. A fat-containing Bochdalek hernia is noted at the left lung base. No pleural effusion is identified. The trachea and central airways are clear. Mediastinum: There is no mediastinal lymphadenopathy. Tati: Clear. Axillae: There is no axillary lymphadenopathy. Upper abdomen: Partially visualized upper abdominal viscera is within normal limits. Skeletal structures: The skeletal structures are osteopenic. Mild degenerative changes noted in the thoracic spine. No lytic or blastic bony lesions are seen. IMPRESSION: 1. Bilateral pulmonary embolus as above. 2. Dependent subpleural consolidation is seen at both lung bases, right greater than left. This could represent pneumonia and/or superimposed pulmonary infarct. Clinical correlation will be essential. 3. Additional findings as above. ACT 112: Negative or not required by law. Electronically signed by: Artemio Stratton M.D. 01/22/2021 5:12 PM Medications Administered Home Medications alendronate 70 mg tablet (Fosamax) 70 mg PO .COMPLEX tab 01/05/19 [History Confirmed 01/22/21] cholecalciferol (vitamin D3) 500 mg PO DAILY 01/05/19 [History Confirmed 01/22/21] omega-3 fatty acids-fish oil 360 mg-1,200 mg capsule (Fish Oil) 1 cap PO DAILY 01/05/19 [History Confirmed 01/22/21] syspkra-ukrgccjni-ybqv 333 mg-133 mg-5 mg tablet 333 tab PO DAILY tab 01/09/20 [History Confirmed 01/22/21] aspirin 81 mg tablet 81 mg PO DAILY tab 01/07/21 [History Confirmed 01/11/21] escitalopram oxalate 10 mg tablet 10 mg PO DAILY #30 tab 01/07/21 [History Confirmed 01/22/21] memantine 10 mg tablet 10 mg PO BID #60 tab 01/07/21 [Rx Confirmed 01/22/21] topiramate 100 mg tablet 100 mg PO .COMPLEX #270 tab 01/07/21 [Rx Confirmed 01/22/21] ondansetron HCl 4 mg tablet (Zofran) 4 mg PO Q6H PRN #12 tab 01/12/21 [Rx Confirmed 01/22/21] Active Medications Heparin Sodium/Dextrose (Heparin Sodium/Dextrose) 25,000 units in 500 mls @ 0.02 mls/hr IV .Q24H FERNANDA; Protocol Stop: 02/21/21 17:44 Last Admin: 01/22/21 17:33 Dose: 1,050 units/hr, 21 mls/hr Documented by: Lactated Ringer's (Lr) 1,000 mls @ 80 mls/hr IV .[id number] FERNANDA Stop: 02/21/21 18:29 Lidocaine (Lidocaine 5% 1 Patch) 1 patch TD QAM FERNANDA Stop: 02/21/21 18:14 Heparin Sodium/Dextrose (Heparin Sodium/Dextrose) 25,000 units in 500 mls @ 0.02 mls/hr IV .Q24H FERNANDA; Protocol Stop: 02/21/21 17:44 Last Admin: 01/22/21 17:33 Dose: 1,050 units/hr, 21 mls/hr Documented by: [id number] Cosigned by: [id number] Discontinued Medications Heparin Sodium (Porcine) (Heparin Sod (Porcine) 1000 Unit/Ml) 1 units IV NOW ONE Stop: 01/22/21 17:36 Last Admin: 01/22/21 17:34 Dose: 5,000 units Documented by: [id number] Cosigned by: [id number] Ioversol (Optiray 320 125ml) 110 ml IV ONCE ONE Stop: 01/22/21 17:03 Last Admin: 01/22/21 17:02 Dose: 110 ml Documented by: [id number] Oxycodone HCl (Oxycodone Hcl Ir 5 Mg Tab (Immediate Release)) 5 mg PO NOW STA Stop: 01/22/21 17:36 Last Admin: 01/22/21 17:41 Dose: 5 mg Documented by: [id number] ECG Additional Comments: Normal sinus rhythm Cannot rule out Anteroseptal infarct , age undetermined Abnormal ECG When compared with ECG of 13-JUN-2013 12:51, Minimal criteria for Anteroseptal infarct are now Present Code Status & VTE Plan Code Status CODE: FULL VTE: SCDs, Heparin drip VTE Prophylaxis Plan VTE Prophylaxis will be ordered: Yes Supervising Physician Co-Signing Physician Notes During face to face encounter with patient, obtained a history and physical examination. Discussed case with LEIGH Vaca and answered all of the patient's questions. I reviewed above note and agree with it. Patient will be admitted with a pulmonary embolism. Michael be placed on IV heparin and once pain is controlled with lidocaine patch, patient will be discharged likely on a DOAC. PG Care Time/CCT Total # of Minutes Spent Total Time Spent with Patient: Total time spent is greater than 50% in coordination of care (as documented) at patient's floor/unit and/or counseling patient: Coding Level of Care Code 66291 Initial Inpt Care Lvl 3 Diagnoses COVID-19 U07.1 Pulmonary embolism I26.99 Cognitive dysfunction F09 Chronic fatigue R53.82 Migraine G43.909 Complex partial seizure G40.209 Depression with anxiety F41.8 Hypovolemia E86.1 Weight loss R63.4
[2021-01-22] MEDS ORDERED: KETOROLAC TROMETHAMINE 15 MG/ML VIAL IV ONE (19:01)
[2021-01-22] MEDS: LACTATED RINGER'S 1,000 ML IV SCH (19:06)
[2021-01-22] MEDS: LIDOCAINE 5% 1 PATCH TD SCH (19:06)
[2021-01-22 19:26] LABS: Fibrinogen 421 mg/dl (184-400)
[2021-01-22 19:41] LABS: C Reactive Protein 2.9 mg/dl (0-0.29); Ferritin 219.9 ng/ml (8-388)
[2021-01-22] MEDS ORDERED: ONDANSETRON INJ 2 MG/ML 2 ML VIAL IV PRN (21:26)
[2021-01-22] MEDS ORDERED: ONDANSETRON 4 MG OD TAB PO PRN (21:42)
[2021-01-22] MEDS: TOPIRAMATE 100 MG TAB PO SCH (23:44)
[2021-01-23 00:36] LABS: Partial Thromboplastin Ratio 3.9
[2021-01-23 00:41] LABS: Partial Thromboplastin Time 102.6 Seconds (21.0-31.0)
[2021-01-23] MEDS ORDERED: KETOROLAC TROMETHAMINE 15 MG/ML VIAL IV ONE (01:28)
[2021-01-23] MEDS: ACETAMINOPHEN 325 MG TAB PO PRN ×2 (05:50→13:11)
[2021-01-23 07:38] LABS: Basophils # (auto) 0.01 K/uL (0-0.2); Basophils % (auto) 0.1 %; Eosinophils # (auto) 0.02 K/uL (0-0.5); Eosinophils % (auto) 0.3 %; Hematocrit (blood only) 31.2 % (37-47); Immature Granulocytes # (auto) 0.01 K/uL (0.00-0.02); Immature Granulocytes % (auto) 0.1 %; Lymphocytes # (auto) 1.05 K/uL (1.2-3.4); Lymphocytes % (auto) 13.8 %; Mean Corpuscular Hgb Conc 35.3 g/dL (32-36); Mean Corpuscular Volume 87.9 fL (80-100); Mean Platelet Volume 9.5 fL (7.4-10.4); Monocytes # (auto) 0.79 K/uL (0.11-0.59); Monocytes % (auto) 10.4 %; Neutrophils # (auto) 5.75 K/uL (1.4-6.5); Neutrophils % (auto) 75.3 %; Platelet Count 218 K/uL (130-400); RDW Coefficient of Variation 12.5 % (11.5-14.5); RDW Standard Deviation 40.7 fL (36.4-46.3); Red Blood Count 3.55 M/uL (4.2-5.4); White Blood Count 7.63 K/uL (4.8-10.8)
[2021-01-23] MEDS: ESCITALOPRAM OXALATE 10 MG TAB PO SCH (07:53)
[2021-01-23] MEDS: MEMANTINE HCL 10 MG TAB PO SCH (07:53)
[2021-01-23] MEDS: TOPIRAMATE 100 MG TAB PO SCH ×2 (07:54→21:12)
[2021-01-23] MEDS: LIDOCAINE 5% 1 PATCH TD SCH (07:54)
[2021-01-23] MEDS: LACTATED RINGER'S 1,000 ML IV SCH (07:54)
[2021-01-23 07:57] LABS: Partial Thromboplastin Ratio 2.1
[2021-01-23 07:59] LABS: Partial Thromboplastin Time 54.6 Seconds (21.0-31.0)
[2021-01-23 08:22] LABS: BUN Creatinine Ratio 12.7 (10-20); Calcium 8.4 mg/dl (8.5-10.1); Creatinine Clr Calc Pharmacy 61.7 ml/min; Est GFR (African American) 91.5 ml/min; Est GFR (Non-African American) 78.9 ml/min; Magnesium 2.2 mg/dl (1.8-2.4); Potassium 4.2 mmol/L (3.5-5.1)
--- NOTE | 2021-01-23 16:49 | Hospitalist Progress Note ---
Date of Service January 23, 2021 Assessment & Plan (1) Pulmonary embolism: Plan: Acute bilateral pulmonary embolism with right sided pulmonary infarction - in the setting of COVID 19 - Patient hemodynamically stable, no evidence of shock, Troponin I negative, BNP - PESI II, modified PESI 0, - Shock index 0.6 -Continue Heparin drip for now, case management working on seeing if she can get financial assistance for DOAC. Can give first 30 days for free but not sure if she will be able to continue on it after that. Patient will also look into getting new insurance plan for April that would have better coverage of DOAC medications. Other option would be Lovenox bridge to Coumadin Will know more information tomorrow-continue heparin drip for now - Risk factors- COVID, decrease mobility - No RV dilation on CT scan - Normal WBC and NLR and platelet count For her Pulmonary infarct pain- Lidoderm patches q12,, Tylenol, and will add as needed IV Toradol back as this helped. ICS and if severe consider oral narcotic. (2) COVID-19: Plan: COVID 19 without hypoxia or respiratory failure - Patient is Day 11 from test and day 15 from illness onset at the time of admission -Is on Covid precautions but other than PE, has no other symptoms except poor appetite - Continue supportive care - CT scan of the lungs except for pulmonary infarct without severe disease or scarring noted Markers of inflammation are low (3) Hypovolemia: Plan: Spec grav 1.045 LR overnight 80ml per hour to meet daily fluid intake Doing better DC IV fluids (4) Cognitive dysfunction: Plan: Follows with neurology- with decrease in her memory - Continue Memantine 10mg-unsure if to be on 10 mg daily or twice daily at this point We will do daily for now (5) Chronic fatigue: (6) Migraine: Plan: On Topiramate- controlled (7) Complex partial seizure: Plan: On Topiramate- Initial seizure was in June 2018- patient has not had any since that she can recall (8) Depression with anxiety: Plan: Continue with escitalopram 10mg PO daily (9) Weight loss: Plan: In the setting of loss of appetite associated with COVID 19 - patient still has her sense of taste and smell - reports 10-12 lb weight loss- patient appears frail - regular diet and supplement with nutritional shakes BID- adjust as warranted Plan: Disposition-continued stay, but hopeful for discharge home tomorrow if pain controlled, and anticoagulation can be worked out Admission and Anticipated Discharge Date Admission Date: January 22, 2021 Subjective Patient still having pain on the right side of her chest wall with deep breathing that is partially relieved by Tylenol. Otherwise does not feel short of breath. No bleeding from anywhere. Discussed choices of anticoagulation and she would like to do a DOAC if possible however her insurance does not cover Xarelto or Eliquis. Case management asked to look into financial assistance for her for this. Telemetry with normal sinus rhythm with rates in the 80s. Review of Systems Review of Systems: All systems reviewed & are unremarkable except as noted in HPI & below Physical Exam Constitutional: WD/WN, vitals as above Eyes: PERRL, conjunctivae normal, anicteric sclerae ENMT: external ear and nose normal, oropharynx normal Neck: trachea midline, no thyromegaly Respiratory: normal respiratory effort, lungs clear to auscultation (Except slightly diminished at right base) Cardiovascular: RRR, no murmur, no edema Chest (Breasts): Chest: normal inspection of chest Gastrointestinal (Abdomen): normal bowel sounds, soft, nontender, no hepatosplenomegaly Musculoskeletal: Extremities: extremities normal to inspection; no cyanosis and no clubbing Skin: no rashes, warm and dry Neurologic: moves all extremities and awake; no focal motor deficits Psychiatric: A+Ox3, euthymic affect Lymphatic: no lymphedema Results & Data Results & Data ([facility]) Vital Signs (Past 12 Hours) Vital Signs Temp Pulse Resp BP Pulse Ox 01/23/21 15:15 37.0 C 79 20 93/60 L 93 01/23/21 07:57 36.8 C 80 18 98/63 L 93 01/23/21 05:39 36.9 C 95 H 18 123/80 91 PG Care Time/CCT Total # of Minutes Spent Total Time Spent with Patient: Total time spent is greater than 50% in coordination of care (as documented) at patient's floor/unit and/or counseling patient: Coding Level of Care Code 80669 Subseq Hosp Care Lvl 3 Diagnoses Pulmonary embolism I26.99 COVID-19 U07.1 Hypovolemia E86.1 Cognitive dysfunction F09 Chronic fatigue R53.82 Migraine G43.909 Complex partial seizure G40.209 Depression with anxiety F41.8 Weight loss R63.4
[2021-01-23] MEDS: KETOROLAC TROMETHAMINE 15 MG/ML VIAL IV PRN (17:29)
[2021-01-23] MEDS: HEPARIN SODIUM/DEXTROSE 25,000 UNITS/500 ML BAG IV SCH (18:36)
[2021-01-24 06:59] LABS: Basophils # (auto) 0.01 K/uL (0-0.2); Basophils % (auto) 0.1 %; Eosinophils # (auto) 0.04 K/uL (0-0.5); Eosinophils % (auto) 0.5 %; Hematocrit (blood only) 32.5 % (37-47); Hemoglobin 11.2 g/dL (12.0-16.0); Immature Granulocytes # (auto) 0.01 K/uL (0.00-0.02); Immature Granulocytes % (auto) 0.1 %; Lymphocytes % (auto) 14.6 %; Mean Corpuscular Hemoglobin 30.1 pg (25-34); Mean Corpuscular Hgb Conc 34.5 g/dL (32-36); Mean Corpuscular Volume 87.4 fL (80-100); Mean Platelet Volume 9.7 fL (7.4-10.4); Monocytes # (auto) 0.69 K/uL (0.11-0.59); Monocytes % (auto) 9.2 %; Neutrophils # (auto) 5.69 K/uL (1.4-6.5); Neutrophils % (auto) 75.5 %; Platelet Count 233 K/uL (130-400); RDW Coefficient of Variation 12.6 % (11.5-14.5); RDW Standard Deviation 40.6 fL (36.4-46.3); Red Blood Count 3.72 M/uL (4.2-5.4); White Blood Count 7.54 K/uL (4.8-10.8)
[2021-01-24 07:17] LABS: BUN Creatinine Ratio 15.8 (10-20); Calcium 8.6 mg/dl (8.5-10.1); Creatinine Clr Calc Pharmacy 56.2 ml/min; Est GFR (African American) 79.9 ml/min; Est GFR (Non-African American) 68.9 ml/min; Potassium 4.4 mmol/L (3.5-5.1)
[2021-01-24 07:38] LABS: Partial Thromboplastin Time 53.2 Seconds (21.0-31.0)
[2021-01-24] MEDS: MEMANTINE HCL 10 MG TAB PO SCH (08:39)
[2021-01-24] MEDS: TOPIRAMATE 100 MG TAB PO SCH ×2 (08:39→20:41)
[2021-01-24] MEDS: LIDOCAINE 5% 1 PATCH TD SCH (08:39)
[2021-01-24] MEDS: ESCITALOPRAM OXALATE 10 MG TAB PO SCH (08:39)
[2021-01-24] MEDS: KETOROLAC TROMETHAMINE 15 MG/ML VIAL IV PRN (08:40)
--- NOTE | 2021-01-24 12:00 | Electrocardiogram Report ---
Test Reason : Blood Pressure : / mmHG Vent. Rate : 091 BPM Atrial Rate : 091 BPM P-R Int : 204 ms QRS Dur : 070 ms QT Int : 354 ms P-R-T Axes : 050 045 027 degrees QTc Int : 435 ms Normal sinus rhythm Cannot rule out Anteroseptal infarct , age undetermined Abnormal ECG When compared with ECG of 13-JUN-2013 12:51, Minimal criteria for Anteroseptal infarct are now Present Confirmed by Qamar Keating ([id number]) on 01/24/2021 12:00:33 PM Referred By: REFERRED SELF Confirmed By:Qamar Keating
--- NOTE | 2021-01-24 12:38 | Hospitalist Progress Note ---
Date of Service January 24, 2021 Assessment & Plan (1) Pulmonary embolism: Plan: Acute bilateral pulmonary embolism with right sided pulmonary infarction - in the setting of COVID 19 - Patient hemodynamically stable, no evidence of shock, Troponin I negative, BNP - PESI II, modified PESI 0, - Shock index 0.6 -Continue Heparin drip for now, case managementhas arranged financial assistance for DOAC. Can give first 30 days for free and enroll in financial assistance program reduces cost after that start Xarelto tomorrow AM Patient will also look into getting new insurance plan for April that would have better coverage of DOAC medications. Other option would be Lovenox bridge to Coumadin Will know more information tomorrow-continue heparin drip for now - Risk factors- COVID, decrease mobility - No RV dilation on CT scan - Normal WBC and NLR and platelet count For her Pulmonary infarct pain- Lidoderm patches q12,, Tylenol, and will add as needed IV Toradol back as this helped. Add oxycodone for pain ICS (2) COVID-19: Plan: COVID 19 without hypoxia or respiratory failure - Patient is Day 11 from test and day 15 from illness onset at the time of admission -Is on Covid precautions but other than PE, has no other symptoms except poor appetite - Continue supportive care - CT scan of the lungs except for pulmonary infarct without severe disease or scarring noted Markers of inflammation are low (3) Hypovolemia: Plan: Spec grav 1.045 better after IVFs (4) Cognitive dysfunction: Plan: Follows with neurology- with decrease in her memory - Continue Memantine 10mg-unsure if to be on 10 mg daily or twice daily at this point We will do daily for now (5) Chronic fatigue: (6) Migraine: Plan: On Topiramate- controlled (7) Complex partial seizure: Plan: On Topiramate- Initial seizure was in June 2018- patient has not had any since that she can recall (8) Depression with anxiety: Plan: Continue with escitalopram 10mg PO daily (9) Weight loss: Plan: In the setting of loss of appetite associated with COVID 19 - patient still has her sense of taste and smell - reports 10-12 lb weight loss- patient appears frail - regular diet and supplement with nutritional shakes BID- adjust as warranted Plan: Disposition-continued stay, but hopeful for discharge home tomorrow if pain controlled, and anticoagulation can be worked out Admission and Anticipated Discharge Date Admission Date: January 22, 2021 Subjective still having pain with deep inspiration on righ tside, otherwise no [place], trying to eat more not ready to go home yet Review of Systems Review of Systems: All systems reviewed & are unremarkable except as noted in HPI & below Physical Exam Constitutional: WD/WN, vitals as above Eyes: PERRL, conjunctivae normal, anicteric sclerae ENMT: external ear and nose normal, oropharynx normal Neck: trachea midline, no thyromegaly Respiratory: normal respiratory effort, lungs clear to auscultation (Except slightly diminished at right base) Cardiovascular: RRR, no murmur, no edema Chest (Breasts): Chest: normal inspection of chest Gastrointestinal (Abdomen): normal bowel sounds, soft, nontender, no hepatosplenomegaly Musculoskeletal: Extremities: extremities normal to inspection; no cyanosis and no clubbing Skin: no rashes, warm and dry Neurologic: moves all extremities and awake; no focal motor deficits Psychiatric: A+Ox3, euthymic affect Lymphatic: no lymphedema Results & Data Results & Data ([facility]) Vital Signs (Past 12 Hours) Vital Signs Temp Pulse Pulse Resp BP Pulse Ox 01/24/21 12:03 37.3 C 79 20 90/56 L 94 01/24/21 07:46 37.1 C 94 H 18 128/81 94 01/24/21 03:42 37.4 C 80 16 117/74 94 01/24/21 00:40 74 PG Care Time/CCT Total # of Minutes Spent Total Time Spent with Patient: Total time spent is greater than 50% in coordination of care (as documented) at patient's floor/unit and/or counseling patient: Coding Level of Care Code 08411 Subseq Hosp Care Lvl 2 Diagnoses Pulmonary embolism I26.99 COVID-19 U07.1 Hypovolemia E86.1 Cognitive dysfunction F09 Chronic fatigue R53.82 Migraine G43.909 Complex partial seizure G40.209 Depression with anxiety F41.8 Weight loss R63.4
[2021-01-24] MEDS: ACETAMINOPHEN 325 MG TAB PO PRN (20:40)
[2021-01-24] MEDS: oxyCODONE HCL IR 5 MG TAB (IMMEDIATE RELEASE) PO PRN (20:46)
[2021-01-24] MEDS: HEPARIN SODIUM/DEXTROSE 25,000 UNITS/500 ML BAG IV SCH (22:25)
[2021-01-25 08:27] LABS: Basophils # (auto) 0.01 K/uL (0-0.2); Basophils % (auto) 0.1 %; Eosinophils # (auto) 0.02 K/uL (0-0.5); Eosinophils % (auto) 0.3 %; Hematocrit (blood only) 31.9 % (37-47); Hemoglobin 10.9 g/dL (12.0-16.0); Immature Granulocytes # (auto) 0.02 K/uL (0.00-0.02); Immature Granulocytes % (auto) 0.3 %; Lymphocytes # (auto) 1.09 K/uL (1.2-3.4); Mean Corpuscular Hemoglobin 30.4 pg (25-34); Mean Corpuscular Hgb Conc 34.2 g/dL (32-36); Mean Corpuscular Volume 88.9 fL (80-100); Mean Platelet Volume 9.5 fL (7.4-10.4); Monocytes # (auto) 0.73 K/uL (0.11-0.59); Neutrophils # (auto) 5.41 K/uL (1.4-6.5); Neutrophils % (auto) 74.3 %; Platelet Count 226 K/uL (130-400); RDW Coefficient of Variation 12.6 % (11.5-14.5); RDW Standard Deviation 40.7 fL (36.4-46.3); Red Blood Count 3.59 M/uL (4.2-5.4); White Blood Count 7.28 K/uL (4.8-10.8)
[2021-01-25 08:52] LABS: Partial Thromboplastin Ratio 1.9
[2021-01-25 08:56] LABS: Partial Thromboplastin Time 48.9 Seconds (21.0-31.0)
[2021-01-25 09:05] LABS: BUN Creatinine Ratio 15.5 (10-20); Calcium 8.9 mg/dl (8.5-10.1); Creatinine Clr Calc Pharmacy 59.3 ml/min; Est GFR (African American) 84.7 ml/min; Est GFR (Non-African American) 73.1 ml/min; Potassium 3.8 mmol/L (3.5-5.1)
[2021-01-25] MEDS: TOPIRAMATE 100 MG TAB PO SCH ×2 (09:07→21:09)
[2021-01-25] MEDS: LIDOCAINE 5% 1 PATCH TD SCH (09:08)
[2021-01-25] MEDS: ESCITALOPRAM OXALATE 10 MG TAB PO SCH (09:08)
[2021-01-25] MEDS: MEMANTINE HCL 10 MG TAB PO SCH (09:08)
[2021-01-25] MEDS: oxyCODONE HCL IR 5 MG TAB (IMMEDIATE RELEASE) PO PRN (09:37)
[2021-01-25] MEDS: RIVAROXABAN 15 MG TAB PO SCH ×2 (09:37→16:33)
--- NOTE | 2021-01-25 15:59 | Hospitalist Progress Note ---
Date of Service January 25, 2021 Assessment & Plan (1) Pulmonary embolism: Plan: Acute bilateral pulmonary embolism with right sided pulmonary infarction - in the setting of COVID 19 - Patient hemodynamically stable, no evidence of shock, Troponin I negative, BNP - PESI II, modified PESI 0, - Shock index 0.6 -initially on Heparin drip and now transitioned to Xarelto on 01/25--> Can give first 30 days for free and enroll in financial assistance program reduces cost after that. [employer] put enrollment paperwork in chart Patient will also look into getting new insurance plan for April that would have better coverage of DOAC medications. Other option would be Lovenox bridge to Coumadin - Risk factors- COVID, decrease mobility - No RV dilation on CT scan - Normal WBC and NLR and platelet count For her Pulmonary infarct pain- Lidoderm patches q12, Tylenol, IV Toradol, and continue oxycodone for pain ICS Continued stay for pain control (2) COVID-19: Plan: COVID 19 without hypoxia or respiratory failure - now over 2 weeks from symptom onset, can probably come off precautions -Is on Covid precautions but other than PE, has no other symptoms except poor appetite - Continue supportive care - CT scan of the lungs except for pulmonary infarct without severe disease or scarring noted Markers of inflammation are low low grade fever likely from infarct and PE (3) Hypovolemia: Plan: Spec grav 1.045 better after IVFs (4) Cognitive dysfunction: Plan: Follows with neurology- with decrease in her memory - Continue Memantine 10mg-unsure if to be on 10 mg daily or twice daily at this point We will do daily for now (5) Chronic fatigue: (6) Migraine: Plan: On Topiramate- controlled (7) Complex partial seizure: Plan: On Topiramate- Initial seizure was in June 2018- patient has not had any since that she can recall (8) Depression with anxiety: Plan: Continue with escitalopram 10mg PO daily (9) Weight loss: Plan: In the setting of loss of appetite associated with COVID 19 - patient still has her sense of taste and smell - reports 10-12 lb weight loss- patient appears frail - regular diet and supplement with nutritional shakes BID- adjust as warranted Plan: Disposition-continued stay, but hopeful for discharge home tomorrow if pain controlled. Xarelto Started pack already called into [facility] Admission and Anticipated Discharge Date Admission Date: January 22, 2021 Subjective Pt still having a lot of pain with deep inspiration, taking oxycodone without as much relief as the toradol. Does not feel ready to go home.Had some nausea last night, not eating much still. tele with NSR normal rates Review of Systems Review of Systems: All systems reviewed & are unremarkable except as noted in HPI & below Physical Exam Constitutional: WD/WN, vitals as above ENMT: external ear and nose normal, oropharynx normal Neck: trachea midline, no thyromegaly Respiratory: normal respiratory effort, lungs clear to auscultation (Except s lightly diminished at right base,some splinting) Cardiovascular: RRR, no murmur, no edema Chest (Breasts): Chest: normal inspection of chest Gastrointestinal (Abdomen): normal bowel sounds, soft, nontender, no hepatosplenomegaly Musculoskeletal: Extremities: extremities normal to inspection; no cyanosis and no clubbing Skin: no rashes, warm and dry Neurologic: moves all extremities and awake; no focal motor deficits Psychiatric: A+Ox3, euthymic affect Lymphatic: no lymphedema Results & Data Results & Data ([facility]) Vital Signs (Past 12 Hours) Vital Signs Temp Pulse Pulse Resp BP Pulse Ox 01/25/21 14:59 37.5 C 85 16 106/68 91 01/25/21 12:00 36.9 C 81 30 H 122/76 92 01/25/21 07:00 64 01/25/21 06:19 37.0 C 73 18 100/63 93 Laboratory Results 01/25/21 01/25/21 01/25/21 Range/Units 08:00 08:00 08:00 WBC 7.28 (4.8-10.8) K/uL RBC 3.59 L (4.2-5.4) M/uL Hgb 10.9 L (12.0-16.0) g/dL Hct 31.9 L (37-47) % MCV 88.9 (80-100) fL MCH 30.4 (25-34) pg MCHC 34.2 (32-36) g/dL RDW Std Deviation 40.7 (36.4-46.3) fL RDW Coeff of Za 12.6 (11.5-14.5) % Plt Count 226 (130-400) K/uL MPV 9.5 (7.4-10.4) fL Immature Gran % (Auto) 0.3 % Neut % (Auto) 74.3 % Lymph % (Auto) 15.0 % [place] % (Auto) 10.0 % Eos % (Auto) 0.3 % Baso % (Auto) 0.1 % Neut # (Auto) 5.41 (1.4-6.5) K/uL Lymph # (Auto) 1.09 L (1.2-3.4) K/uL [place] # (Auto) 0.73 H (0.11-0.59) K/uL Eos # (Auto) 0.02 (0-0.5) K/uL Baso # (Auto) 0.01 (0-0.2) K/uL Immature Gran # (Auto) 0.02 (0.00-0.02) K/uL APTT 48.9 H* (21.0-31.0) Seconds PTT Ratio 1.9 Sodium 141 (136-145) mmol/L Potassium 3.8 (3.5-5.1) mmol/L Chloride 111 H (98-107) mmol/L Carbon Dioxide 24 (21-32) mmol/L Anion Gap 6.0 (3-11) BUN 13 (7-18) mg/dl Creatinine 0.81 (0.6-1.2) mg/dl Est Cr Clr Drug Dosing 59.3 ml/min Est GFR ( Amer) 84.7 ml/min Est GFR (Non-Af Amer) 73.1 ml/min BUN/Creatinine Ratio 15.5 (10-20) Glucose 91 (70-99) mg/dl Calcium 8.9 (8.5-10.1) mg/dl PG Care Time/CCT Total # of Minutes Spent Total Time Spent with Patient: Total time spent is greater than 50% in coordination of care (as documented) at patient's floor/unit and/or counseling patient: Coding Level of Care Code 73479 Subseq Hosp Care Lvl 2 Diagnoses Pulmonary embolism I26.99 COVID-19 U07.1 Hypovolemia E86.1 Cognitive dysfunction F09 Chronic fatigue R53.82 Migraine G43.909 Complex partial seizure G40.209 Depression with anxiety F41.8 Weight loss R63.4
[2021-01-25] MEDS: KETOROLAC TROMETHAMINE 15 MG/ML VIAL IV PRN (16:03)
[2021-01-26] MEDS: ESCITALOPRAM OXALATE 10 MG TAB PO SCH (08:06)
[2021-01-26] MEDS: MEMANTINE HCL 10 MG TAB PO SCH (08:06)
[2021-01-26] MEDS: RIVAROXABAN 15 MG TAB PO SCH (08:07)
[2021-01-26] MEDS: LIDOCAINE 5% 1 PATCH TD SCH (08:07)
[2021-01-26] MEDS: TOPIRAMATE 100 MG TAB PO SCH (08:09)
[2021-01-26 08:18] LABS: Basophils # (auto) 0.01 K/uL (0-0.2); Basophils % (auto) 0.2 %; Eosinophils # (auto) 0.03 K/uL (0-0.5); Eosinophils % (auto) 0.5 %; Hematocrit (blood only) 31.1 % (37-47); Hemoglobin 10.8 g/dL (12.0-16.0); Immature Granulocytes # (auto) 0.01 K/uL (0.00-0.02); Immature Granulocytes % (auto) 0.2 %; Lymphocytes # (auto) 1.13 K/uL (1.2-3.4); Lymphocytes % (auto) 17.3 %; Mean Corpuscular Hemoglobin 30.3 pg (25-34); Mean Corpuscular Hgb Conc 34.7 g/dL (32-36); Mean Corpuscular Volume 87.1 fL (80-100); Mean Platelet Volume 9.5 fL (7.4-10.4); Monocytes # (auto) 0.58 K/uL (0.11-0.59); Monocytes % (auto) 8.9 %; Neutrophils # (auto) 4.76 K/uL (1.4-6.5); Neutrophils % (auto) 72.9 %; Platelet Count 241 K/uL (130-400); RDW Coefficient of Variation 12.6 % (11.5-14.5); RDW Standard Deviation 40.6 fL (36.4-46.3); Red Blood Count 3.57 M/uL (4.2-5.4); White Blood Count 6.52 K/uL (4.8-10.8)
[2021-01-26 08:45] LABS: BUN Creatinine Ratio 16.8 (10-20); Calcium 8.8 mg/dl (8.5-10.1); Creatinine Clr Calc Pharmacy 56.2 ml/min; Est GFR (African American) 78.8 ml/min; Potassium 4.3 mmol/L (3.5-5.1)
[2021-01-26] MEDS ORDERED: DOCUSATE SODIUM/SENNA 50/8.6MG TAB PO SCH (09:00)
[2021-01-26] MEDS ORDERED: POLYETHYLENE (MIRALAX) 17 GM PACK PO SCH (09:00)
--- NOTE | 2021-01-26 14:13 | Discharge Summary ---
Date of Service January 26, 2021 Admission HPI Per Admitting Provider [id number] YOF with past medical history of: COVID 19 (01/11/21 test +, symptoms 01/07/21), cognitive dysfunction, Complex partial seizure, migraine, anxiety, osteopenia. Patient comes to the emergency room today for acute onset of right lower chest pain on the anterior lateral intercostals 5-6. This started last night around 2330 and was sharp and stabbing in nature that continued to get progressively worse today. This was also associated with dyspnea as well that got progressively worse today. The patient has not been admitted for her COVID and has been managing at home, with just a decrease in appetite for the past week and has noticed 10-12 lb weight loss. She states that no food tastes good to her, but she has been trying to stay hydrated, but even that has been a struggle today. In the EMD the patient had routine labs drawn and ECG. Due to her pain location a [place] [address], which prompted CTA of the chest. CTA of the chest revealed bilateral PEs- right distal main PA extending to the right middle and lower lobe with pulmonary infraction as well as segmental and subsegmental PE on the left. The patient was not hypoxic had no tachycardia or evidence of hemodynamic instability. Her troponin I was negative, no pericardial effusion and no note of heart strain on ECG or physical exam. Patient was started on Heparin drip with bolus in the EMD and the hospitalist was called for admission. Patient is fatigued appearing and has been sleeping in her recliner at home. She has not noticed any leg pain or discomfort and no leg pain or swollen calves on examination. Patient will be admitted for supportive care of her nutrition and hydration status and transition to DOAC for her PE in the setting of COVID. For her pain that is likely resulting from pulmonary infarct will transition to Lidoderm patch and Toradol dose now and Tylenol. This should improve over the next day. Patient PESI score is II with Modified PESI of 0. Patient is unvaccinated. COVID test positive on . Principal Diagnosis Pulmonary embolism with pulmonary infarct Discharge Exam Constitutional WD/WN, vitals as above Eyes + anicteric sclerae Neck trachea midline, no thyromegaly Respiratory normal respiratory effort, lungs clear to auscultation (Except slightly diminished at right base,some splinting) Cardiovascular RRR, no murmur, no edema Chest (Breasts) Chest: normal inspection of chest Gastrointestinal (Abdomen) normal bowel sounds, soft, nontender, no hepatosplenomegaly Musculoskeletal Extremities: extremities normal to inspection; no cyanosis and no clubbing Skin no rashes, warm and dry Neurologic moves all extremities and awake; no focal motor deficits Psychiatric A+Ox3, euthymic affect Lymphatic no lymphedema Discharge Data Allergies Allergy/AdvReac Type Severity Reaction Status Date / Time Penicillins Allergy Unknown AMOXICILLIN Verified 01/22/21 15:00 amoxicillin AdvReac Hives Unverified 01/22/21 15:00 Consultations 01/22/21 17:52 ED Decision to Admit Stat Ordered Studies 01/22/21 15:37 CT angio chest PE protocol Stat Hospital Course (1) Pulmonary embolism: Acute bilateral pulmonary embolism with right sided pulmonary infarction - in the setting of COVID 19 - Patient hemodynamically stable, no evidence of shock, Troponin I negative, BNP normal - PESI II, modified PESI 0, - Shock index 0.6 -initially on Heparin drip and now transitioned to Xarelto on 01/25--> Can give first 30 days for free and enroll in financial assistance program reduces cost after that. [employer] put enrollment paperwork in chart Patient will also look into getting new insurance plan for April that would have better coverage of DOAC medications. If she cannot afford Xarelto after this, can be transitioned to Coumadin as an outpatient. Recommend 6 months of treatment given large clot burden - Risk factors- COVID, decreased mobility - No RV dilation on CT scan - Normal WBC and NLR and platelet count For her Pulmonary infarct pain- Lidoderm patches q12, Tylenol, IV Toradol, and oxycodone were used upon dc, she can use tylenol and ibuprofen sparingly ICS Not requiring oxygen, pain very well controlled now Stable for dc to home (2) COVID-19: COVID 19 without hypoxia or respiratory failure - now over 2 weeks from symptom onset, can probably come off precautions -Is on Covid precautions but other than PE, has no other symptoms except poor appetite which is improving - Continue supportive care - CT scan of the lungs except for pulmonary infarct without severe disease or scarring noted Markers of inflammation are low low grade fever likely from infarct and PE is now resolved (3) Hypovolemia: Spec grav 1.045 better after IVFs (4) Cognitive dysfunction: Follows with neurology- with decrease in her memory - Continue Memantine (5) Chronic fatigue: (6) Migraine: On Topiramate- controlled (7) Complex partial seizure: On Topiramate- Initial seizure was in June 2018- patient has not had any since that she can recall (8) Depression with anxiety: Continue with escitalopram 10mg PO daily (9) Weight loss: In the setting of loss of appetite associated with COVID 19 - patient still has her sense of taste and smell - reports 10-12 lb weight loss- patient appears frail - regular diet and supplement with nutritional shakes BID- adjust as warranted Disposition-dc to home Total Time Total Time Spent Total Time Spent (In Minutes): 35 min Discharge Plan Discharge Items Patient Disposition: Home - Self-Care Reason For Visit: PULMONARY EMBOLISM Discharge Diagnosis: Pulmonary embolism Condition on Discharge: Good Activity: As commented below Lifting: Gradually increase as tolerated Bathing: No limitations Exercise/Sports: Gradually increase as tolerated Weightbearing: Full weightbearing Non-emergency contact: Primary Care Provider Call non-emergency contact if: you have any medication questions, your symptoms worsen, your pain is not controlled, your pain is worsening, your pain is unusual for you, your pain is concerning for you, you have a fever and your temperature is above 101 Follow-up/Referrals: Stefany Feng PA-C [Physician Exhibit Artist] - 02/01/21 9:00 am (Hospital follow up with primary care.) Diet: Regular Addtl Attending Provider Instructions: You were admitted to the hospital for blood clots in your lungs that were likely caused by your recent COVID-19 infection. Please continue taking the Xarelto as your blood thinner for the next 6 months. You will get the Starter Pack of Xarelto at the drugstore and start taking the evening dose on "Day #2" as you started Xarelto "Day #1" while you were in the hospital on 01/25. You will then need to stay on the Xarelto 20mg once daily WITH DINNER for a total of 6 months. If you have any problems with bleeding such as bloody noses, vomiting blood, blood in your stool or urine, trauma/large cut that is bleeding, or vaginal bleeding, please call your doctor or come to the hospital right away. If you fall and hit your head and have a headache, please get checked out right away. [employer], the company that makes Xarelto, offers a financial assistance program that you qualify for. This program is called [employer]. It would allow you to obtain your [place] for $85/month. To complete enrollment of this program, you must call #[phone] after discharge. When you call, just let them know that you would like to complete enrollment in the [employer] Program. Your first 30 days of Xarelto should be FREE as the cost savings card was already faxed to [employer]. You can take tylenol and an occasional ibuprofen as needed for pain in your chest with deep breathing. Follow up with your PCP as scheduled. Pending Studies at Discharge: No Stand-Alone Forms: My [facility] Medications and DC Order Prescriptions: New acetaminophen 325 mg Tablet 650 mg PO Q4H PRN (Reason: pain) Qty: 30 RF: 0 Xarelto DVT-PE Treat 30d Start 15 mg (42)- 20 mg (9) tablets,dose pack See Rx Instructions .ROUTE .COMPLEX Qty: 51 RF: 0 Continued topiramate 100 mg tablet 100 mg PO .COMPLEX Qty: 270 RF: 3 hufvctp-cpapaocvz-rlpm 333-133-5 mg tablet 333 tab PO DAILY RF: 0 alendronate [Fosamax] 70 mg tablet 70 mg PO .COMPLEX RF: 0 omega-3 fatty acids-fish oil [Fish Oil] 360-1,200 mg capsule 1 cap PO DAILY RF: 0 cholecalciferol (vitamin D3) 500 mg PO DAILY RF: 0 aspirin 81 mg tablet 81 mg PO DAILY RF: 0 escitalopram oxalate 10 mg tablet 10 mg PO DAILY Qty: 30 RF: 0 memantine 10 mg tablet 10 mg PO BID Qty: 60 RF: 2 ondansetron HCl [Zofran] 4 mg tablet 4 mg PO Q6H PRN (Reason: nausea and vomiting) Qty: 12 RF: 0 Discharge Orders: Discharge Order (Routine); Ordered 01/26/21 Ordered By: Ginette Varela Admission Data Admit Date/Time: 01/22/21 18:17 Attending Provider: Ginette Varela Admit Provider: Matthew Han Primary Care Provider: Michael Mars V. Other Providers: Matthew Hna Coding Level of Care Code D/C DAY MANAGEMENT >30 MINS Diagnoses Pulmonary embolism I26.99 COVID-19 U07.1 Hypovolemia E86.1 Cognitive dysfunction F09 Chronic fatigue R53.82 Migraine G43.909 Complex partial seizure G40.209 Depression with anxiety F41.8 Weight loss R63.4
[2021-01-29] MEDS ORDERED: ALENDRONATE SODIUM 70 MG TAB PO SCH (06:30)
[2021-02-05] MEDS ORDERED: MEMANTINE HCL 10 MG TAB PO SCH (21:00)
== END 2021-01-26 15:15 | disposition home or self-care (01) | DRG 177 ==
LOC: ED 11:39 → 2N 18:17 → SUATTDRO 18:17 → 2N 21:18